=== PATIENT | male | born 1985 | race Caucasian/White ===

== ENCOUNTER 2020-06-30 14:42 | Emergency (ER) | payer OTHER ==
[~2020-06-30] VITALS: Ht 165.1 cm; Wt 64.0 kg
[2020-06-30] MEDS ORDERED: TETANUS, DIPHTHERIA, PERTUSSIS VAC/PF 0.5ML (>7YR OLD) IM ONE (15:00)
[2020-06-30] MEDS ORDERED: KETOROLAC 15MG/ML VIAL IM ONE (15:15)
[2020-06-30 17:50] VITALS: BP 133/79
== END 2020-06-30 17:52 ==
LOC: ER 15:08
DX: M25.572 Pain in left ankle and joints of left foot (principal); E11.9 Type 2 diabetes mellitus without complications; I10 Essential (primary) hypertension; R00.0 Tachycardia, unspecified
CPT/HCPCS: 73110; 73590; 73610; 73630; 90471; 90715; 93005; 96372; 99284; J1885